=== PATIENT | female | born 1980 | race Caucasian/White ===

== ENCOUNTER 2018-07-29 22:58 | Emergency (ER) | payer BC, SELFPAY ==
[2018-07-29] MEDS ORDERED: Ibuprofen 200 MG TAB ONE ×3 (23:09)
== END 2018-07-29 23:01 | disposition home or self-care (01) ==
LOC: BURERS 22:58
DX: M75.101 Unspecified rotator cuff tear or rupture of right shoulder, not specified as traumatic (principal); X50.1XXA Overexertion from prolonged static or awkward postures, initial encounter
CPT/HCPCS: 99281

== ENCOUNTER 2019-02-24 23:50 | Emergency (ER) | payer SELFPAY ==
[2019-02-25] MEDS ORDERED: Ibuprofen 800 MG TAB ONE (00:13)
== END 2019-02-25 00:20 | disposition home or self-care (01) ==
LOC: BURERS 23:50
DX: S46.811A Strain of other muscles, fascia and tendons at shoulder and upper arm level, right arm, initial encounter (principal); X58.XXXA Exposure to other specified factors, initial encounter
CPT/HCPCS: 99283

== ENCOUNTER 2019-10-04 19:15 | Emergency (ER) | payer SELFPAY ==
[2019-10-04] MEDS ORDERED: Ibuprofen 800 MG TAB ONE (19:35)
[2019-10-04] MEDS ORDERED: traMADol HCl 50 MG TAB ONE (19:36)
== END 2019-10-04 19:39 | disposition home or self-care (01) ==
LOC: BURERS 19:15
DX: M25.511 Pain in right shoulder (principal)
CPT/HCPCS: 99283